=== PATIENT | female | born 1960 | race Caucasian/White ===

== ENCOUNTER 2022-02-07 15:04 | Emergency (ER) | payer SELFPAY ==
[~2022-02-07] VITALS: Ht 170.2 cm; Wt 77.0 kg
[2022-02-07] MEDS ORDERED: ONDANSETRON HCL 4MG/2ML INJ IV STA (16:27)
[2022-02-07] MEDS ORDERED: SODIUM CHLORIDE 0.9% 2,000 ML IV ONE (16:30)
[2022-02-07 17:04] LABS: CHLORIDE 104 mEq/L (98-107)
[2022-02-07 17:13] LABS: BETA HYDROXYBUTYRATE 0.1 mMol/L (0.0-0.3)
[2022-02-07 17:40] VITALS: BP 108/74
[2022-02-07 17:40] LABS: EOSINOPHILS % 2.9 % (0.0-5.0); HEMATOCRIT. 35.4 % (36.0-48.0); HEMOGLOBIN. 12.9 g/dL (12.0-16.0); LYMPHOCYTES % 37.6 % (20.0-50.0); MEAN CORPUSCULAR HEMOGLOBIN 30.1 pg (28.0-32.0); MEAN CORPUSCULAR VOLUME 82.7 fL (81.0-99.0); MEAN PLATELET VOLUME 9.2 fl (7.4-10.4); MONOCYTES % 8.4 % (2.0-8.0); NEUTROPHILS % 50.1 % (40.0-76.0); PLATELET 331 x1000/uL (130-400); RED BLOOD CELL COUNT 4.28 mill/uL (4.2-5.4); RED CELL DISTRIBUTION WIDTH 15.2 % (11.6-14.6)
[2022-02-07] MEDS ORDERED: SODIUM CHLORIDE 0.9% 1000ML BAG (SEPSIS BOLUS) IV ONE (18:30)
[2022-02-07] MEDS ORDERED: PIPERACILLIN/TAZ 3.375G PREMIX 50 ML IV ONE (18:30)
[2022-02-07] MEDS ORDERED: VANCOMYCIN 1G PREMIX 200 ML IV ONE (18:30)
[2022-02-07 18:39] LABS: CLARITY URINE CLEAR (CLEAR); COLOR URINE YELLOW (YELLOW); KETONES URINE NEGATIVE (NEGATIVE); LEUKOCYTE ESTERASE URINE NEGATIVE (NEGATIVE); NITRITE URINE NEGATIVE (NEGATIVE); OCCULT BLOOD URINE NEGATIVE (NEGATIVE); PROTEIN URINE NEGATIVE (NEGATIVE); UROBILINOGEN URINE 0.2 E.U./dL (0.2-1.0)
== END 2022-02-07 22:09 | disposition home or self-care (01) ==
LOC: ER 15:04
DX: E11.65 Type 2 diabetes mellitus with hyperglycemia (principal); M62.81 Muscle weakness (generalized); I10 Essential (primary) hypertension; Z85.038 Personal history of other malignant neoplasm of large intestine; Z98.890 Other specified postprocedural states; Z79.4 Long term (current) use of insulin
CPT/HCPCS: 36415; 80053; 81003; 82010; 82962; 83605; 83690; 83735; 84484; 85025; 87086; 93005; 96361; 96365; 96366; 96367; 96375; 99284; J2405; J2543; J3370; J7030